=== PATIENT | male | born 1970 | race American Indian/Alaskan Native ===

== ENCOUNTER 2017-01-09 14:52 | Emergency (ER) | payer MEDICAID, OTHER ==
[2017-01-09 14:52] VITALS: BMI 50.9
--- NOTE | 2017-01-09 15:58 | C.PDOC ---
History Of Present Illness 46 year old patient presents to the ED complaining of right foot and ankle pain for the past 2 weeks. Patient has a known history of gout and he notes this complaint is similar to previous episodes of gout. Patient reports he took multiple Colchicine tabs today (dose unknown), but has not taken any medications for diabetes or hypertension. He denies any fever, injuries to the foot or ankle, chest pain, shortness of breath, extremity numbness, rash, discharge. Time Seen by Provider: 01/09/17 15:13 Chief Complaint (Nursing): Lower Extremity Problem/Injury History Per: Patient History/Exam Limitations: no limitations Onset/Duration Of Symptoms: Other (2 weeks) Severity: Moderate Recent travel outside of the [place]: No Past Medical History Reviewed: Historical Data, Nursing Documentation, Vital Signs Vital Signs: Last Vital Signs Temp 98.3 F 01/09/17 17:13 Pulse 102 H 01/09/17 17:13 Resp 18 01/09/17 17:13 BP 161/72 H 01/09/17 17:13 Pulse Ox 96 01/09/17 18:12 - Medical History PMH: Anemia, Depression, HTN, Sleep Apnea - [facility] Procedures ASSISTANCE WITH RESPIRATORY VENTILATION, <24 HRS, CPAP (10/15/15) INSERTION OF ENDOTRACHEAL AIRWAY INTO TRACHEA, VIA OPENING (10/15/15) RESPIRATORY VENTILATION, LESS THAN 24 CONSECUTIVE HOURS (10/15/15) Family History: States: No Known Family Hx - Social History Hx Alcohol Use: No Hx Substance Use: No - Immunization History Hx Tetanus Toxoid Vaccination: No Hx Influenza Vaccination: No Hx Pneumococcal Vaccination: No Review Of Systems Except As Marked, All Systems Reviewed And Found Negative. Constitutional: Negative for: Fever, Chills Cardiovascular: Negative for: Chest Pain, Palpitations Respiratory: Negative for: Cough, Shortness of Breath Gastrointestinal: Negative for: Nausea, Vomiting, Abdominal Pain, Diarrhea Musculoskeletal: Positive for: Foot Pain (right) Neurological: Negative for: Weakness, Numbness Physical Exam - Physical Exam Appears: Well, Non-toxic, Unkempt, Other (in mild discomfort, morbidly obese) Skin: Normal Color, Warm, Dry, Other (see extremity exam) Oral Mucosa: Moist Cardiovascular: Rhythm Regular Respiratory: Normal Breath Sounds, No Rales, No Rhonchi, No Wheezing Gastrointestinal/Abdominal: Normal Exam, Bowel Sounds, Soft, No Tenderness Back: Normal Inspection, No CVA Tenderness Extremity: Normal ROM, No Pedal Edema, No Calf Tenderness, Capillary Refill (< 2 seconds all digits ), No Deformity, Other (right foot: mild diffuse swelling and warmth to touch of the foot; tenderness to palpation at right MCP; (-) erythema) Extremity: Bilateral: Normal ROM Pulses: Left Dorsalis Pedis: Normal, Right Dorsalis Pedis: Normal Neurological/Psych: Oriented x3, Normal Motor, Normal Sensation Gait: With Assistance (walker) ED Course And Treatment O2 Sat by Pulse Oximetry: 96 (room air) Pulse Ox Interpretation: Normal Progress Note: Patient given PO Losartan, Indocin, Metformin in ED. Reevaluation Time: 16:40 Reassessment Condition: Improved (On reassessment, patient is resting comfortably and states his pain has improved. He was given walker to ambulate with, and rxs for indomethacin and colchicine. He was instructed to follow up with PMD/clinic in 1-2 days, and understands he should return to ED if symptoms worsen.) Disposition Counseled Patient/Family Regarding: Studies Performed, Diagnosis, Need For Followup, Rx Given - Disposition Referrals: Christopher Long MD [Medical Doctor] - Disposition: HOME/ ROUTINE Disposition Time: 16:40 Condition: STABLE Additional Instructions: FOLLOW UP WITH YOUR DOCTOR IN 1-2 DAYS USE MEDICATIONS DIRECTED RETURN TO ER IF SYMPTOMS WORSEN Prescriptions: Colchicine 0.6 mg PO DAILY #4 capsule Indomethacin [Indocin] 50 mg PO BID PRN #15 cap PRN Reason: pain Instructions: Gout (ED) Print Language: PERUVIAN - POA Present On Arrival: None - Clinical Impression Clinical Impression: Gout of right foot - PA / [employer]OR / Resident Statement MD/DO has reviewed & agrees with the documentation as recorded. - Scribe Statement The provider has reviewed the documentation as recorded by the Scribe Cici Sheehan Provider Attestation: All medical record entries made by the Gloriaibrachel were at my direction and personally dictated by me. I have reviewed the chart and agree that the record accurately reflects my personal performance of the history, physical exam, medical decision making, and the department course for this patient. I have also personally directed, reviewed, and agree with the discharge instructions and disposition.
[2017-01-09 17:14] VITALS: BP 161/72; PULSE 102; RESP 18; TEMP 98.3; O2SAT 96
== END 2017-01-09 17:50 | disposition home or self-care (01) ==
LOC: C.ER 14:52
DX: M10.9 Gout, unspecified (principal)

== ENCOUNTER 2017-04-13 15:05 | Inpatient (IN) | payer MEDICAID, OTHER ==
[2017-04-13 15:05] VITALS: BMI 50.9
[2017-04-13 15:42] LABS: BARBITURATES, UR NEGATIVE (NEGATIVE)
[2017-04-13 15:43] LABS: BENZODIAZEPINES, UR NEGATIVE (NEGATIVE)
[2017-04-13 15:44] LABS: SQUAMOUS EPITHIAL 5 /hpf (0-5); URINE BILIRUBIN NEGATIVE (NEGATIVE); URINE BLOOD NEGATIVE (NEGATIVE); URINE CLARITY Hazy (Clear); URINE COLOR Yellow (YELLOW); URINE GLUCOSE (UA) NORMAL (Normal); URINE HYALINE CAST 0-2 /lpf (0-2); URINE LEUKOCYTE ESTERASE 1+ Leu/uL (Negative); URINE NITRATE NEGATIVE (NEGATIVE); URINE PROTEIN NEGATIVE (NEGATIVE); URINE UROBILINOGEN NORMAL mg/dL (0.2-1.0)
[2017-04-13 15:46] LABS: OPIATES, UR NEGATIVE (NEGATIVE); PHENCYCLIDINE, UR NEGATIVE (NEGATIVE)
[2017-04-13] MEDS ORDERED: Naloxone 0.4 mg/ml Inj (Adult) IV ONE (15:48)
[2017-04-13] MEDS ORDERED: Naloxone 0.4 mg/ml Inj (Adult) ONE (15:59)
[2017-04-13] MEDS ORDERED: Naloxone 0.4 mg/ml Inj (Adult) SC ONE (16:03)
--- NOTE | 2017-04-13 16:35 | C.PDOC ---
History Of Present Illness 46 y/o male with Hx of substance abuse brought to ED by BLS after being found unconscious at Diagnostic Office. Patient was not given Narcan SANITATION LEAD. No other complaints at this time. Time Seen by Provider: 04/13/17 15:31 Chief Complaint (Nursing): Substance Abuse History Per: EMS History/Exam Limitations: other (Unconscious) Onset/Duration Of Symptoms: Days Current Symptoms Are (Timing): Still Present Past Medical History Reviewed: Historical Data, Nursing Documentation, Vital Signs Vital Signs: Last Vital Signs Temp 97.6 F 04/13/17 17:19 Pulse 96 H 04/13/17 17:19 Resp 20 04/13/17 17:19 BP 116/72 04/13/17 17:19 Pulse Ox 98 04/13/17 17:19 - Medical History PMH: Anemia, Depression, HTN, Sleep Apnea - [facility] Procedures ASSISTANCE WITH RESPIRATORY VENTILATION, <24 HRS, CPAP (10/15/15) INSERTION OF ENDOTRACHEAL AIRWAY INTO TRACHEA, VIA OPENING (10/15/15) RESPIRATORY VENTILATION, LESS THAN 24 CONSECUTIVE HOURS (10/15/15) Family History: States: Unknown Family Hx - Social History Hx Alcohol Use: No (UNKNOWN) Hx Substance Use: No (UNKNOWN) - Immunization History Hx Tetanus Toxoid Vaccination: No Hx Influenza Vaccination: No Hx Pneumococcal Vaccination: No Review Of Systems Review Of Systems: ROS cannot be obtained secondary to pt's inabilty to answer questions. (Patient is unconscious) Physical Exam - Physical Exam Appears: Other (Unconscious, morbidly obese ) Skin: Warm Eye(s): bilateral: Normal Inspection Oral Mucosa: Moist ED Course And Treatment - Laboratory Results Result Diagrams: 04/13/17 16:30 04/13/17 16:30 Lab Interpretation: Normal (tox, etoh, asa/tylenol neg.) ECG: Interpreted By Ia ECG Rhythm: Sinus Rhythm ECG Interpretation: Normal Rate From EC O2 Sat by Pulse Oximetry: 89 (RA) Pulse Ox Interpretation: Abnormal - Radiology CXR: Interpreted by Me CXR Interpretation: Yes: No Acute Disease Reevaluation Time: 20:10 Reassessment Condition: Improved (conversant with staff, but somnolent after 5 hours.) - Physician Consult Information Outcome Of Conversation: 1900: d/w Poison Control and ICU, ok to Tele Obs with CPAP and supportive care. Medical Decision Making Medical Decision Making: recurrent OD on psych meds and benadryl with poor insight. LOW susp of toxic OD as pt inreasingly more arousable and tox/ASA/Tylenol/ETOH neg Recent similar OD with multple day admission for psych coordination of dispo Disposition Doctor Will See Patient In The: Hospital Counseled Patient/Family Regarding: Studies Performed, Diagnosis - Disposition Disposition: HOSPITALIZED Disposition Time: 20:12 Condition: GOOD Forms: [facility] (Icelandic) - Clinical Impression Clinical Impression: Altered mental status, Overdose, Sleep apnea - Scribe Statement The provider has reviewed the documentation as recorded by the Gloriaibrachel Devries All medical record entries made by the Gloriaibrachel were at my direction and personally dictated by me. I have reviewed the chart and agree that the record accurately reflects my personal performance of the history, physical exam, medical decision making, and the department course for this patient. I have also personally directed, reviewed, and agree with the discharge instructions and disposition.
[2017-04-13 16:36] LABS: BASO % 0.7 % (0.0-2.0); EOS # 0.1 K/uL (0.0-0.7); EOS % 0.8 % (0.0-4.0); HEMOGLOBIN 12.9 g/dL (12.0-18.0); LYMPH # 1.8 K/uL (1.0-4.3); LYMPH % 25.3 % (20.0-40.0); MEAN CELL VOLUME 87.6 fL (80.0-94.0); MEAN CORPUSCULAR HEMOGLOBIN 28.7 pg (27.0-31.0); MEAN CORPUSCULAR HGB CONC 32.8 g/dL (33.0-37.0); MEAN PLATELET VOLUME 7.8 fL (7.2-11.7); MONO # 0.8 K/uL (0.0-0.8); MONO % 11.1 % (0.0-10.0); NEUT # 4.4 K/uL (1.8-7.0); NEUT % 62.1 % (50.0-75.0); NRBC % 0.1 % (0.0-2.0); RBC 4.5 Mil/uL (4.40-5.90); RED CELL DISTRIBUTION WIDTH 14.2 % (11.5-14.5)
[2017-04-13 16:45] LABS: ALBUMIN 3.4 g/dL (3.5-5.0)
[2017-04-13 16:46] LABS: SALICYLATE < 1.0 mg/dL 1
[2017-04-13 16:47] LABS: ACETAMINOPHEN < 10.0 ug/mL (10.0-30.0); GFR AFRICAN-AMERICAN > 60; GFR NON-AFRICAN AMERICAN > 60
[2017-04-13 16:48] LABS: ALB/GLOB RATIO 1.1 (1.0-2.1); ALT/SGPT 24 U/L (21-72); AST/SGOT 24 U/L (17-59); BLOOD UREA NITROGEN 18 mg/dL (9-20); CALCIUM 8.2 mg/dl (8.6-10.4)
--- NOTE | 2017-04-13 17:20 | CT ---
PROCEDURE: CT HEAD WITHOUT CONTRAST. HISTORY: AMS COMPARISON: None available. TECHNIQUE: Axial computed tomography images were obtained through the head/brain without intravenous contrast. Radiation dose: Total exam DLP = 1482.79 mGy-cm. This CT exam was performed using one or more of the following dose reduction techniques: Automated exposure control, adjustment of the mA and/or kV according to patient size, and/or use of iterative reconstruction technique. FINDINGS: HEMORRHAGE: No intracranial hemorrhage. BRAIN: No mass effect or edema. Left middle cranial fossa arachnoid cyst versus encephalomalacia. The huynh-white matter differentiation appears otherwise intact. Please note that MRI with diffusion imaging is more sensitive in the detection of acute ischemic event. VENTRICLES: No hydrocephalus. CALVARIUM: Unremarkable. PARANASAL SINUSES: Unremarkable as visualized. No significant inflammatory changes. MASTOID AIR CELLS: Unremarkable as visualized. No inflammatory changes. OTHER FINDINGS: None. IMPRESSION: Left middle cranial fossa arachnoid cyst versus encephalomalacia.
--- NOTE | 2017-04-13 20:58 | CP.PCM.CON ---
History of Present Illness - History of Present Illness History of Present Illness: CCm 46 yo black male with hx Schizophrenia /Substance Abuse /Anemia /Depression /HTN /JACK brought to ED after becoming unresponsive in office. No response to narcan.Pt placed on O2 initially not responding and pinpoint pupils. Pt snoring when seen in ED now arousable and answering some questions. Poor historian. Caims he took some benadryl and Haldol. denied pain / sob /n /v /d /fever. ROS- as noted All- NKDA Social- + tob/ ? etoh / + hx substance abuse Meds- reviewed FH- Unknown PE T-97.6 P96 R-20 BP-116/72 O2 sat 100% Obese black male/ lethargic, responsive Perrl Neck- no jvd lungs- bilat bs Heart-rr aBd- benign eXt- nontender Neuro- moves all ext on command Labs , x-rays, EKG-reviewed A&P Mixed OD JACK Schizophrenia Anemia Depression HTN titrate down on FIO2 / maintain sat >92% f/u ABG hydration maintain optimal lytes CPAP suction prn Admit to Telemetry re-consult prn d/w ED staff Past Patient History - Infectious Disease Hx of Infectious Diseases: None - Past Social History Smoking Status: Unknown If Ever Smoked - CARDIAC Hx Hypertension: Yes - PULMONARY Hx Sleep Apnea: Yes - NEUROLOGICAL Hx Neurological Disorder: No - HEENT Hx HEENT Problems: No - RENAL Hx Chronic Kidney Disease: No - ENDOCRINE/METABOLIC Hx Diabetes Mellitus Type 2: Yes - HEMATOLOGICAL/ONCOLOGICAL Hx Anemia: Yes - INTEGUMENTARY Hx Dermatological Problems: No - MUSCULOSKELETAL/RHEUMATOLOGICAL Hx Musculoskeletal Disorders: No - GASTROINTESTINAL Hx Gastrointestinal Disorders: No - GENITOURINARY/GYNECOLOGICAL Hx Genitourinary Disorders: No - PSYCHIATRIC Hx Depression: Yes Hx Substance Use: No (UNKNOWN) - SURGICAL HISTORY Hx Surgeries: No - ANESTHESIA Hx Anesthesia: No Hx Anesthesia Reactions: No Hx Malignant Hyperthermia: No Meds Allergies/Adverse Reactions: Allergies Allergy/AdvReac Type Severity Reaction Status Date / Time No Known Allergies Allergy Verified 06/13/15 02:16 Results - Vital Signs Recent Vital Signs: Last Vital Signs Temp 97.6 F 04/13/17 17:19 Pulse 96 H 04/13/17 17:19 Resp 20 04/13/17 17:19 BP 116/72 04/13/17 17:19 Pulse Ox 89 L 04/13/17 20:13 - Labs Result Diagrams: 04/13/17 16:30 04/13/17 16:30 Labs: Laboratory Results - last 24 hr 04/13/17 04/13/17 04/13/17 15:26 15:26 16:30 WBC 7.0 RBC 4.50 Hgb 12.9 Hct 39.4 MCV 87.6 D MCH 28.7 MCHC 32.8 L RDW 14.2 Plt Count 235 MPV 7.8 Neut % (Auto) 62.1 Lymph % (Auto) 25.3 [place] % (Auto) 11.1 H Eos % (Auto) 0.8 Baso % (Auto) 0.7 Neut # 4.4 Lymph # 1.8 [place] # 0.8 Eos # 0.1 Baso # 0.0 Sodium Potassium Chloride Carbon Dioxide Anion Gap BUN Creatinine Est GFR ( Amer) Est GFR (Non-Af Amer) Random Glucose Calcium Total Bilirubin AST ALT Alkaline Phosphatase Total Protein Albumin Globulin Albumin/Globulin Ratio Urine Color Yellow Urine Clarity Hazy Urine pH 6.0 Ur Specific [place] 1.018 Urine Protein Negative Urine Glucose (UA) Normal Urine Ketones Negative Urine Blood Negative Urine Nitrate Negative Urine Bilirubin Negative Urine Urobilinogen Normal Ur Leukocyte Esterase 1+ H Urine WBC (Auto) 4 Urine RBC (Auto) < 1 Ur Squamous Epith Cells 5 Hyaline Casts 0-2 Salicylates Urine Opiates Screen Negative Urine Methadone Screen Negative Acetaminophen Ur Barbiturates Screen Negative Ur Phencyclidine Scrn Negative Ur Amphetamines Screen Negative U Benzodiazepines Scrn Negative U Oth Cocaine Metabols Negative U Cannabinoids Screen Negative Alcohol, Quantitative 04/13/17 04/13/17 16:30 16:30 WBC RBC Hgb Hct MCV MCH MCHC RDW Plt Count MPV Neut % (Auto) Lymph % (Auto) [place] % (Auto) Eos % (Auto) Baso % (Auto) Neut # Lymph # [place] # Eos # Baso # Sodium 141 Potassium 3.9 Chloride 94 L Carbon Dioxide 33 H Anion Gap 18 BUN 18 Creatinine 1.0 Est GFR ( Amer) > 60 Est GFR (Non-Af Amer) > 60 Random Glucose 129 H Calcium 8.2 L Total Bilirubin 0.4 AST 24 ALT 24 Alkaline Phosphatase 57 Total Protein 6.7 Albumin 3.4 L Globulin 3.2 Albumin/Globulin Ratio 1.1 Urine Color Urine Clarity Urine pH Ur Specific [place] Urine Protein Urine Glucose (UA) Urine Ketones Urine Blood Urine Nitrate Urine Bilirubin Urine Urobilinogen Ur Leukocyte Esterase Urine WBC (Auto) Urine RBC (Auto) Ur Squamous Epith Cells Hyaline Casts Salicylates < 1.0 Urine Opiates Screen Urine Methadone Screen Acetaminophen < 10.0 L Ur Barbiturates Screen Ur Phencyclidine Scrn Ur Amphetamines Screen U Benzodiazepines Scrn U Oth Cocaine Metabols U Cannabinoids Screen Alcohol, Quantitative < 10 Assessment & Plan (1) Overdose Status: Acute (2) Altered mental status Status: Acute (3) Sleep apnea Status: Acute (4) Morbid obesity Status: Chronic (5) Schizophrenia Status: Chronic
[2017-04-14] MEDS: Dextrose 5%/0.45% NS 1,000 ML IV SCH (00:02)
[2017-04-14] MEDS: (Novolog) Insulin Aspart, Recombinant 100 u/ml 10 ml vial SC SCH ×4 (08:00→21:48)
--- NOTE | 2017-04-14 08:53 | RAD ---
HISTORY: admission sleep apnea COMPARISON: 03/31/2013 FINDINGS: LUNGS: Mild venous congestion. Right hilar prominence. PLEURA: No significant pleural effusion identified, no pneumothorax apparent. CARDIOVASCULAR: Normal. OSSEOUS STRUCTURES: No significant abnormalities. VISUALIZED UPPER ABDOMEN: Normal. OTHER FINDINGS: None. IMPRESSION: Mild venous congestion. Right hilar prominence.
[2017-04-14] MEDS: Pantoprazole 40 mg EC Tab PO SCH (10:28)
[2017-04-14] MEDS: Enoxaparin 40 mg Syringe SC SCH (10:28)
--- NOTE | 2017-04-14 10:50 | CP.PCM.PN ---
<Radha Sullivan - Last Filed: 04/14/17 17:56> Subjective - Date & Time of Evaluation Date of Evaluation: 04/14/17 Time of Evaluation: 10:50 - Subjective Subjective: Hospitalist resident progress note for Dr. Sheehan Patient seen and examined at bedside. No acute events overnight. Patient was sleeping at the time of exam and was having difficulty staying awake. Unable to obtain detailed history and ROS due to drowsiness. Objective - Vital Signs/Intake and Output Vital Signs (last 24 hours): Temp Pulse Resp BP Pulse Ox 98.4 F 74 20 148/81 96 04/14/17 08:58 04/14/17 08:58 04/14/17 08:58 04/14/17 08:58 04/14/17 08:58 Intake and Output: 04/14/17 04/14/17 06:59 18:59 Intake Total 525 Output Total 250 Balance 275 - Medications Medications: Current Medications Aspirin (Aspirin Chewable) 81 mg PO DAILY [facility] Last Admin: 04/14/17 10:28 Dose: 81 mg Enoxaparin Sodium (Lovenox) 40 mg SC DAILY [facility] Last Admin: 04/14/17 10:28 Dose: 40 mg Dextrose/Sodium Chloride (Dextrose 5%/0.45% Ns 1000 Ml) 1,000 mls @ 75 mls/hr IV .[id number] [facility] Last Admin: 04/14/17 00:02 Dose: 75 mls/hr Insulin Aspart (Novolog) 0 unit SC ACHS [facility] PRN Reason: Protocol Pantoprazole Sodium (Protonix Ec Tab) 40 mg PO DAILY [facility] Last Admin: 04/14/17 10:28 Dose: 40 mg - Constitutional Appears: Non-toxic, No Acute Distress, Other (obese) - Head Exam Head Exam: ATRAUMATIC, NORMAL INSPECTION, NORMOCEPHALIC - Eye Exam Eye Exam: EOMI, Normal appearance, PERRL Pupil Exam: NORMAL ACCOMODATION, PERRL - ENT Exam ENT Exam: Mucous Membranes Moist, Normal Exam - Respiratory Exam Respiratory Exam: Clear to Ausculation Bilateral Additional comments: CPAP mask in place - Cardiovascular Exam Cardiovascular Exam: REGULAR RHYTHM, +S1, +S2. absent: Murmur - GI/Abdominal Exam GI & Abdominal Exam: Soft, Normal Bowel Sounds Additional comments: obese - Extremities Exam Extremities Exam: Normal Capillary Refill, Normal Inspection. absent: Joint Swelling, Pedal Edema - Neurological Exam Neurological Exam: Alert, Awake - Psychiatric Exam Psychiatric exam: Normal Affect, Normal Mood - Skin Skin Exam: Dry, Intact, Normal Color, Warm Assessment and Plan - Assessment and Plan (Free Text) Assessment: Mixed overdose -Urine drug screen negative -Patient remains lethargic -Vitals are stable, continue to monitor -Received a dose of Narcan in the ED -Continue D5 1/2 NS JACK -Follow Pulmonary recommendations -Continue CPAP, suction PRN DM -ISS -Accucheck ACHS Schizophrenia, psychosis -Psychiatry consult, Dr. Gardiner help appreciated -1 on 1 observation -Consider Abilify once mentation improved Prophylactic measures -Lovenox -Protonix <Erasto Sheehan S - Last Filed: 04/14/17 19:37> Objective - Vital Signs/Intake and Output Vital Signs (last 24 hours): Temp Pulse Resp BP Pulse Ox 98.2 F 84 22 105/67 100 04/14/17 15:16 04/14/17 16:30 04/14/17 15:16 04/14/17 15:16 04/14/17 15:16 - Medications Medications: Current Medications Aspirin (Aspirin Chewable) 81 mg PO DAILY [facility] Last Admin: 04/14/17 10:28 Dose: 81 mg Enoxaparin Sodium (Lovenox) 40 mg SC DAILY [facility] Last Admin: 04/14/17 10:28 Dose: 40 mg Dextrose/Sodium Chloride (Dextrose 5%/0.45% Ns 1000 Ml) 1,000 mls @ 75 mls/hr IV .[id number] [facility] Last Admin: 04/14/17 00:02 Dose: 75 mls/hr Insulin Aspart (Novolog) 0 unit SC [facility] PRN Reason: Protocol Last Admin: 04/14/17 18:19 Dose: Not Given Pantoprazole Sodium (Protonix Ec Tab) 40 mg PO DAILY [facility] Last Admin: 04/14/17 10:28 Dose: 40 mg Attending/Attestation - Attestation I have personally seen and examined this patient.: Yes I have fully participated in the care of the patient.: Yes I have reviewed all pertinent clinical information, including history, physical exam and plan: Yes Notes (Text): 04/14/17 19:37 Case seen and discussed with the staff for patient is poor historian a psychiatrist Dr. carvajal notes seen
--- NOTE | 2017-04-14 16:42 | CP.PCM.CON ---
Past Patient History - Infectious Disease Hx of Infectious Diseases: None - Past Social History Smoking Status: Unknown If Ever Smoked - CARDIAC Hx Hypertension: Yes - PULMONARY Hx Sleep Apnea: Yes - NEUROLOGICAL Hx Neurological Disorder: No - HEENT Hx HEENT Problems: No - RENAL Hx Chronic Kidney Disease: No - ENDOCRINE/METABOLIC Hx Diabetes Mellitus Type 2: Yes - HEMATOLOGICAL/ONCOLOGICAL Hx Anemia: Yes - INTEGUMENTARY Hx Dermatological Problems: No - MUSCULOSKELETAL/RHEUMATOLOGICAL Hx Falls: Yes - GASTROINTESTINAL Hx Gastrointestinal Disorders: No - GENITOURINARY/GYNECOLOGICAL Hx Genitourinary Disorders: No - PSYCHIATRIC Hx Substance Use: No (UNKNOWN) - SURGICAL HISTORY Hx Surgeries: No - ANESTHESIA Hx Anesthesia: No Hx Anesthesia Reactions: No Hx Malignant Hyperthermia: No Meds Allergies/Adverse Reactions: Allergies Allergy/AdvReac Type Severity Reaction Status Date / Time No Known Allergies Allergy Verified 06/13/15 02:16 - Medications Medications: Current Medications Aspirin (Aspirin Chewable) 81 mg PO DAILY [facility] Last Admin: 04/14/17 10:28 Dose: 81 mg Enoxaparin Sodium (Lovenox) 40 mg SC DAILY [facility] Last Admin: 04/14/17 10:28 Dose: 40 mg Dextrose/Sodium Chloride (Dextrose 5%/0.45% Ns 1000 Ml) 1,000 mls @ 75 mls/hr IV .[id number] [facility] Last Admin: 04/14/17 00:02 Dose: 75 mls/hr Insulin Aspart (Novolog) 0 unit SC [facility] PRN Reason: Protocol Last Admin: 04/14/17 11:52 Dose: Not Given Pantoprazole Sodium (Protonix Ec Tab) 40 mg PO DAILY [facility] Last Admin: 04/14/17 10:28 Dose: 40 mg Results - Vital Signs Recent Vital Signs: Last Vital Signs Temp 98.4 F 04/14/17 08:58 Pulse 74 04/14/17 08:58 Resp 20 04/14/17 08:58 BP 148/81 04/14/17 08:58 Pulse Ox 96 04/14/17 08:58 - Labs Result Diagrams: 04/13/17 16:30 04/13/17 16:30 Labs: Laboratory Results - last 24 hr 04/13/17 04/14/17 04/14/17 22:15 06:45 11:28 POC Glucose (mg/dL) 92 117 H 122 H 04/14/17 16:21 POC Glucose (mg/dL) 108
--- NOTE | 2017-04-14 17:03 | PCM.PSYCH ---
Initial Psychiatric Evaluation - Initial Psychiatric Evaluation History of Present Illness and Precipitating Events: Mr Menezes is a 46 yr old male who was brought to ED by BLS after being found unconscious at the Diagnostic Office. Obtaining a good history was not possible because the patient was sleeping with cpap mask and not responding to our questions. Very poor historian at this time. He would open his eyes briefly and provide one word answers before falling asleep again. He says his home medications include benedryl, depakote, cogentin, haldol. He denied hallucinations. Some of his history was obtained from his chart from previous admissions. On a previous admission the patient was found to have psychotic behavior and anti-psychotic meds were given. He was transferred to [facility] [place] inpatient admission to their psych unit. Psychiatric Hx: Schizophrenia, Depression Other Medical Hx: JACK, Anemia, HTN, HLD, NIDDM Social Hx: single; not employed Current Medications: Active Medications Generic Name Dose Route Start Last Admin Trade Name Freq PRN Reason Stop Dose Admin Aspirin 81 mg 04/14/17 10:04/14/17 10:28 Aspirin Chewable PO 81 mg DAILY [facility] Administration Enoxaparin Sodium 40 mg 04/14/17 10:00 04/14/17 10:28 Lovenox SC 40 mg DAILY [facility] Administration Dextrose/Sodium Chloride 1,000 mls @ 75 mls/hr 04/13/17 22:45 04/14/17 00:02 Dextrose 5%/0.45% Ns 1000 Ml IV 75 mls/hr .[id number] [facility] Administration Insulin Aspart 0 unit 04/14/17 07:30 04/14/17 11:52 Novolog SC Not Given ACHS [facility] Protocol Pantoprazole Sodium 40 mg 04/14/17 10:00 04/14/17 10:28 Protonix Ec Tab PO 40 mg DAILY [facility] Administration Past Psychiatric History - Past Psychiatric History Previous Treatment History: Inpatient Prior Psychiatric Treatment: anti-psychotic meds were given on previous admission Pertinent Medical Hx (Current Medical&Sleep Prob, Allergies): Allergies Allergy/AdvReac Type Severity Reaction Status Date / Time No Known Allergies Allergy Verified 06/13/15 02:16 Colchicine [Colcrys] 0.6 mg PO TID #14 tab 06/13/15 Adult Low Dose Aspirin EC 81 PO DAILY 10/17/15 Cogentin 2 mg PO BID 10/17/15 Metformin HCl 1,000 mg PO BID 10/17/15 Prilosec 20 mg PO 10/17/15 Valsartan [Diovan] 320 mg PO DAILY 10/17/15 Zocor 40 mg PO DAILY 10/17/15 Haloperidol [Haldol] 10 mg PO BID #0 10/20/15 cloZAPine [Clozaril] 25 mg PO BID #0 tab 10/20/15 Colchicine 0.6 mg PO DAILY #4 capsule 01/09/17 Depakote ER 01/09/17 Indomethacin [Indocin] 50 mg PO BID PRN #15 cap 01/09/17 Mental Status Examination - Affect Affect: Flat - Motor Activity Motor Activity: Psychomotor Retardation - Reliability in Providing Information Reliability in Providing Information: Poor, due to cognitve impairment - Speech Speech: Organized DSM 5 DX - DSM 5 DSM 5 Diagnosis: Psychosis - unspecified previous diagnosis of schizophrenia, psychosis - Recommended/Plan of Treatment Treatment Recommendations and Plan of Treatment: Narcan 2mg sc given in ED Monitor for arousability 1:1 obs considering abilify 5mg qpm if not sedated
--- NOTE | 2017-04-14 17:14 | CP.PCM.HP ---
Past Patient History - Infectious Disease Hx of Infectious Diseases: None - Past Social History Smoking Status: Unknown If Ever Smoked - CARDIAC Hx Hypertension: Yes - PULMONARY Hx Sleep Apnea: Yes - NEUROLOGICAL Hx Neurological Disorder: No - HEENT Hx HEENT Problems: No - RENAL Hx Chronic Kidney Disease: No - ENDOCRINE/METABOLIC Hx Diabetes Mellitus Type 2: Yes - HEMATOLOGICAL/ONCOLOGICAL Hx Anemia: Yes - INTEGUMENTARY Hx Dermatological Problems: No - MUSCULOSKELETAL/RHEUMATOLOGICAL Hx Falls: Yes - GASTROINTESTINAL Hx Gastrointestinal Disorders: No - GENITOURINARY/GYNECOLOGICAL Hx Genitourinary Disorders: No - PSYCHIATRIC Hx Substance Use: No (UNKNOWN) - SURGICAL HISTORY Hx Surgeries: No - ANESTHESIA Hx Anesthesia: No Hx Anesthesia Reactions: No Hx Malignant Hyperthermia: No Meds Allergies/Adverse Reactions: Allergies Allergy/AdvReac Type Severity Reaction Status Date / Time No Known Allergies Allergy Verified 06/13/15 02:16 Physical Exam - Constitutional Appears: Well - Head Exam Head Exam: ATRAUMATIC, NORMAL INSPECTION, NORMOCEPHALIC - Eye Exam Eye Exam: EOMI, Normal appearance, PERRL Pupil Exam: NORMAL ACCOMODATION, PERRL - ENT Exam ENT Exam: Mucous Membranes Moist, Normal Exam - Neck Exam Neck exam: Positive for: Normal Inspection - Respiratory Exam Respiratory Exam: Decreased Breath Sounds - Cardiovascular Exam Cardiovascular Exam: REGULAR RHYTHM, +S1, +S2 - GI/Abdominal Exam GI & Abdominal Exam: Diminished Bowel Sounds, Soft - Rectal Exam Rectal Exam: Deferred Results - Vital Signs Recent Vital Signs: Last Vital Signs Temp 98.2 F 04/14/17 15:16 Pulse 84 04/14/17 16:30 Resp 22 04/14/17 15:16 BP 105/67 04/14/17 15:16 Pulse Ox 100 04/14/17 15:16 - Labs Result Diagrams: 04/13/17 16:30 04/13/17 16:30 Labs: Laboratory Results - last 24 hr 04/13/17 04/14/17 04/14/17 22:15 06:45 11:28 POC Glucose (mg/dL) 92 117 H 122 H 04/14/17 16:21 POC Glucose (mg/dL) 108 Assessment & Plan - Assessment and Plan (Free Text) Plan: Continue same Protonix Lovenox patient is a poor historian unable to give a detailed history psych consult call medication seen negative for drug screen follow-up with the psych doctor 1-1 watch
--- NOTE | 2017-04-14 19:14 | CARD ---
APPROVED REPORT EKG Measurement Heart [id number] <Conclusion> Normal sinus rhythm Minimal voltage criteria for LVH, may be normal variant Nonspecific T wave abnormality Abnormal ECG
[2017-04-15] MEDS: Dextrose 5%/0.45% NS 1,000 ML IV SCH (01:25)
[2017-04-15 06:20] LABS: BLOOD UREA NITROGEN 17 mg/dL (9-20); CALCIUM 8.1 mg/dl (8.6-10.4); GFR AFRICAN-AMERICAN > 60; GFR NON-AFRICAN AMERICAN > 60
[2017-04-15 06:21] LABS: BASO % 0.6 % (0.0-2.0); EOS # 0.2 K/uL (0.0-0.7); EOS % 2.6 % (0.0-4.0); HEMOGLOBIN 12.4 g/dL (12.0-18.0); LYMPH # 2.2 K/uL (1.0-4.3); LYMPH % 28.4 % (20.0-40.0); MEAN CORPUSCULAR HEMOGLOBIN 28.5 pg (27.0-31.0); MEAN CORPUSCULAR HGB CONC 32.4 g/dL (33.0-37.0); MONO # 0.8 K/uL (0.0-0.8); MONO % 10.1 % (0.0-10.0); NEUT # 4.6 K/uL (1.8-7.0); NEUT % 58.3 % (50.0-75.0); NRBC % 0.1 % (0.0-2.0); RBC 4.33 Mil/uL (4.40-5.90); RED CELL DISTRIBUTION WIDTH 14.3 % (11.5-14.5); WHITE BLOOD COUNT 7.9 K/uL (4.8-10.8)
[2017-04-15] MEDS: (Novolog) Insulin Aspart, Recombinant 100 u/ml 10 ml vial SC SCH ×4 (08:25→21:05)
[2017-04-15] MEDS: Enoxaparin 40 mg Syringe SC SCH (09:28)
[2017-04-15] MEDS: Pantoprazole 40 mg EC Tab PO SCH (09:28)
--- NOTE | 2017-04-15 11:34 | CP.PCM.PN ---
Subjective - Date & Time of Evaluation Date of Evaluation: 04/15/17 Time of Evaluation: 13:40 - Subjective Subjective: clinically same Objective - Vital Signs/Intake and Output Vital Signs (last 24 hours): Temp Pulse Resp BP Pulse Ox 98.9 F 93 H 18 143/96 H 97 04/15/17 07:20 04/15/17 08:00 04/15/17 07:20 04/15/17 07:20 04/15/17 07:20 Intake and Output: 04/15/17 04/15/17 06:59 18:59 Intake Total 1620 Output Total 600 Balance 1020 - Medications Medications: Current Medications Aripiprazole (Abilify) 10 mg PO DAILY [facility] Aspirin (Aspirin Chewable) 81 mg PO DAILY [facility] Last Admin: 04/15/17 09:28 Dose: 81 mg Colchicine (Colocrys) 0.6 mg PO BID [facility] Last Admin: 04/15/17 10:51 Dose: 0.6 mg Enoxaparin Sodium (Lovenox) 40 mg SC DAILY [facility] Last Admin: 04/15/17 09:28 Dose: 40 mg Indomethacin (Indocin) 50 mg PO BID PRN PRN Reason: Pain, moderate (4-7) Last Admin: 04/15/17 10:52 Dose: 50 mg Insulin Aspart (Novolog) 0 unit SC [facility] PRN Reason: Protocol Last Admin: 04/15/17 08:25 Dose: Not Given Pantoprazole Sodium (Protonix Ec Tab) 40 mg PO DAILY [facility] Last Admin: 04/15/17 09:28 Dose: 40 mg - Labs Labs: 04/15/17 05:53 04/15/17 05:53 - Constitutional Appears: Well - Head Exam Head Exam: ATRAUMATIC, NORMAL INSPECTION, NORMOCEPHALIC - Eye Exam Eye Exam: EOMI, Normal appearance, PERRL Pupil Exam: NORMAL ACCOMODATION, PERRL - ENT Exam ENT Exam: Mucous Membranes Moist, Normal Exam - Neck Exam Neck Exam: Full ROM, Normal Inspection. absent: Lymphadenopathy - Respiratory Exam Respiratory Exam: Decreased Breath Sounds - Cardiovascular Exam Cardiovascular Exam: REGULAR RHYTHM, +S1, +S2 - GI/Abdominal Exam GI & Abdominal Exam: Soft, Diminished Bowel Sounds - Rectal Exam Rectal Exam: Deferred
--- NOTE | 2017-04-15 12:58 | PCM.PYCHPN ---
Psychiatric Progress Note - Psychiatric Progress Note Patient seen today, length of contact: 25 Patient Chief Complaint: chronic schizophrenia, currently no symptoms was admitted after being found unconscious due to unknown cause Problems Identified/Issues Discussed: The patient was seen/interviewed and the chart was reviewed. The patient was awake today and able to converse and answer our questions. He was AAOx4. He states his extreme sedative state as seen yesterday was because " I think I took too many benadryl". He stated he felt fine today. He denied auditory or visual hallucinations. He stated the last time he heard voices was a long time ago. He denied depressive symptoms. He denied abusing drugs. He denied suicidal ideations. He is enrolled in a [facility]CT program ([phone]) which administers his medications, he said there have been no changes to his medications recently. We retrieved a list of his medications from PACT which are listed below. We spoke with the patient's brother Abhishek ([phone]) who stated he didn't notice anything abnormal in the patient's behavior recently and said the patient does not use illicit drugs or alcohol. Per brother, the patient lives alone at home and is independent. Medications per PACT office: Cogentin 2mg po daily, haldol 10mg po daily, clozapine 450mg po daily, depakote er 1250mg po daily, lisinopril 30mg po daily , bi-pap machine at home Medical Problems: chronic Schizophrenia DSM 5 Symptoms Update: chronic schizophrenia Medication Change: Yes (added clozapine 100mg po bid; added aripiprazole 10mg po daily;) Medical Record Reviewed: Yes Mental Status Examination - Cognitive Function Orientation: Person, Place, Situation, Time Memory: Intact Attention: WNL Concentration: WNL Association: WNL Fund of Knowledge: WNL - Mood Mood: Neutral - Affect Affect: Broad - Speech Speech: Appropriate - Formal Thought Process Formal Thought Process: No Impairment - Suicidal Ideation Suicidal Ideation: No - Homicidal Ideation Homicidal Ideation: No Goal/Treatment Plan - Goal/Treatment Plan Need for Continued Stay: Discharge may exacerbated symptoms Progress Toward Problem(s) and Goals/Treatment Plan: transfer to psych unit for observation con't home med depakote 500mg po bid. this is a decrease from his home dose of depakote er 1250mg po daily con't home med benztropine 1mg po bid aripiprazole 10mg po daily discontinue 1:1 obs
--- NOTE | 2017-04-15 13:30 | CP.PCM.PN ---
Subjective - Date & Time of Evaluation Date of Evaluation: 04/15/17 Time of Evaluation: 09:10 - Subjective Subjective: PGY-[address] Sheehan Patient seen and examined at bedside. No acute events overnight. Patient is not complaining of lethargy or shortness of breath, but he is still unable to provide a clear history of what happened prior to coming to the ED. He also complains of his gout is acting up, which causing him pain. Patient denies having headache, fever, chills, coughs, chest pain, palpitations, abdominal pain , nausea, vomiting or urinary symptoms. Objective - Vital Signs/Intake and Output Vital Signs (last 24 hours): Temp Pulse Resp BP Pulse Ox 98.9 F 93 H 18 143/96 H 97 04/15/17 07:20 04/15/17 08:00 04/15/17 07:20 04/15/17 07:20 04/15/17 07:20 Intake and Output: 04/15/17 04/15/17 06:59 18:59 Intake Total 1620 Output Total 600 Balance 1020 - Medications Medications: Current Medications Aripiprazole (Abilify) 10 mg PO DAILY [facility] Last Admin: 04/15/17 11:47 Dose: 10 mg Aspirin (Aspirin Chewable) 81 mg PO DAILY [facility] Last Admin: 04/15/17 09:28 Dose: 81 mg Benztropine Mesylate (Cogentin) 1 mg PO BID [facility] Clozapine (Clozaril) 100 mg PO BID [facility] Colchicine (Colocrys) 0.6 mg PO BID [facility] Last Admin: 04/15/17 10:51 Dose: 0.6 mg Divalproex Sodium (Depakote Dr) 500 mg PO BID [facility] Enoxaparin Sodium (Lovenox) 40 mg SC DAILY [facility] Last Admin: 04/15/17 09:28 Dose: 40 mg Indomethacin (Indocin) 50 mg PO BID PRN PRN Reason: Pain, moderate (4-7) Last Admin: 04/15/17 10:52 Dose: 50 mg Insulin Aspart (Novolog) 0 unit SC [facility] PRN Reason: Protocol Last Admin: 04/15/17 12:26 Dose: Not Given Pantoprazole Sodium (Protonix Ec Tab) 40 mg PO DAILY [facility] Last Admin: 04/15/17 09:28 Dose: 40 mg - Labs Labs: 04/15/17 05:53 04/15/17 05:53 - Constitutional Appears: Well, Non-toxic, No Acute Distress - Head Exam Head Exam: ATRAUMATIC, NORMAL INSPECTION, NORMOCEPHALIC - Eye Exam Eye Exam: EOMI, Normal appearance - ENT Exam ENT Exam: Mucous Membranes Moist, Normal Exam - Respiratory Exam Respiratory Exam: Clear to Ausculation Bilateral, NORMAL BREATHING PATTERN. absent: Wheezes, Respiratory Distress - Cardiovascular Exam Cardiovascular Exam: REGULAR RHYTHM, +S1, +S2. absent: Murmur - GI/Abdominal Exam GI & Abdominal Exam: Soft, Normal Bowel Sounds. absent: Tenderness - Extremities Exam Extremities Exam: Full ROM, Normal Capillary Refill, Normal Inspection. absent : Joint Swelling, Pedal Edema - Neurological Exam Neurological Exam: Alert, Awake, Oriented x3 - Psychiatric Exam Psychiatric exam: Normal Affect, Normal Mood - Skin Skin Exam: Normal Color, Warm Assessment and Plan - Assessment and Plan (Free Text) Assessment: Mixed overdose -Patient's lethargy and drowsiness resolved -Urine drug screen negative -Vitals are stable -Received a dose of Narcan in the ED Schizophrenia, psychosis -Follow psychiatry recommendations -continue with home depokate and benztropine -Start Ability -Discontinued 1 on 1 observation -Patient will be admitted to psychiatric unit for further observation under Dr. Bliss Gout -Start Colchicine and indomethacin JACK -Follow Pulmonary recommendations -Continue CPAP, suction PRN DM -ISS -Accucheck ACHS Prophylactic measures -Lovenox -Protonix Will discuss with attending Dr. Sheehan
[2017-04-15 15:50] VITALS: O2SAT 98
--- NOTE | 2017-04-15 16:52 | CP.PCM.PN ---
Subjective - Date & Time of Evaluation Date of Evaluation: 04/15/17 Objective - Vital Signs/Intake and Output Vital Signs (last 24 hours): Temp Pulse Resp BP Pulse Ox 98.1 F 88 20 116/78 98 04/15/17 15:08 04/15/17 15:08 04/15/17 15:08 04/15/17 15:08 04/15/17 15:08 Intake and Output: 04/15/17 04/15/17 06:59 18:59 Output Total 600 Balance -600 - Medications Medications: Current Medications Aripiprazole (Abilify) 10 mg PO DAILY [facility] Last Admin: 04/15/17 11:47 Dose: 10 mg Aspirin (Aspirin Chewable) 81 mg PO DAILY [facility] Last Admin: 04/15/17 09:28 Dose: 81 mg Benztropine Mesylate (Cogentin) 1 mg PO BID [facility] Clozapine (Clozaril) 100 mg PO BID [facility] Colchicine (Colocrys) 0.6 mg PO BID [facility] Last Admin: 04/15/17 10:51 Dose: 0.6 mg Divalproex Sodium (Depakote Dr) 500 mg PO BID [facility] Enoxaparin Sodium (Lovenox) 40 mg SC DAILY [facility] Last Admin: 04/15/17 09:28 Dose: 40 mg Indomethacin (Indocin) 50 mg PO BID PRN PRN Reason: Pain, moderate (4-7) Last Admin: 04/15/17 10:52 Dose: 50 mg Insulin Aspart (Novolog) 0 unit SC ACHS [facility] PRN Reason: Protocol Last Admin: 04/15/17 12:26 Dose: Not Given Lisinopril (Zestril) 20 mg PO DAILY [facility] Pantoprazole Sodium (Protonix Ec Tab) 40 mg PO DAILY [facility] Last Admin: 04/15/17 09:28 Dose: 40 mg
[2017-04-15] MEDS: Divalproex 500 mg DR Tab PO SCH (17:17)
--- NOTE | 2017-04-15 19:06 | PCM.BM ---
<WinnieRamandeep izaguirre - Last Filed: 04/15/17 19:03> Treatment Plan Problems - Problems identified on initial assessmt Auditory Hallucinations Date Initiated: 04/15/17 Time Initiated: 19:05 Assessment reference: NA Status: Active (Transferred from [address] [place] [address]) Treatment assets and liabiliti Patient Assests: cooperative, negotiates basic needs Patient Liabilities: live alone, poor support system - Milieu Protocol Maintain good personal hygiene: daily Encourage regular showers, daily Remind patient to perform daily oral care Conduct patient checks and document Observation sheet: Q15 minutes Maintain personal safety: every other day Monitor environment for contraband/ sharps Medication safety: Monitor for expected outcome, potential side effects: every other day, Assess barriers to learning: every other day, Assess readiness for medication education: every other day Milieu Narrative: transfer to psych unit for observation con't home med depakote 500mg po bid. this is a decrease from his home dose of depakote er 1250mg po daily con't home med benztropine 1mg po bid aripiprazole 10mg po daily discontinue 1:1 obs Discharge/Continuing Care - Treatment Team Participation Patient/Family/SO Statement: transfer to psych unit for observation con't home med depakote 500mg po bid. this is a decrease from his home dose of depakote er 1250mg po daily con't home med benztropine 1mg po bid aripiprazole 10mg po daily discontinue 1:1 obs <Jay Bliss - Last Filed: 04/15/17 20:06> - Diagnosis (1) Schizophrenia Status: Chronic Interventions: 04/15/17 20:06 * Assess/adjust medications daily and /or as needed * Discuss risks, benefits, sided effects and alternatives of medications * See patient on an individual basis 7x/week to assess level of delusional thoughts/ideation * <Jaylin Pollard - Last Filed: 04/16/17 10:20> Discharge/Continuing Care - Education Needs Education Needs: Patient Medication, Patient Coping Skills - Discharge Discharge Criteria: Tolerates medication w/o severe side effects, Reduction of target symptoms Discharge to:: Home
[2017-04-16] MEDS: (Novolog) Insulin Aspart, Recombinant 100 u/ml 10 ml vial SC SCH ×4 (08:07→21:08)
[2017-04-16] MEDS: Pantoprazole 40 mg EC Tab PO SCH (09:33)
[2017-04-16] MEDS: Divalproex 500 mg DR Tab PO SCH ×2 (09:33→17:47)
[2017-04-16] MEDS: Enoxaparin 40 mg Syringe SC SCH (09:35)
--- NOTE | 2017-04-16 11:09 | PCM.PYCHPN ---
Psychiatric Progress Note - Psychiatric Progress Note Patient seen today, length of contact: 19 min Patient Chief Complaint: "I'm doing better" Problems Identified/Issues Discussed: The pt is seen, chart reviewed, case discussed with staff. The pt is compliant with medications and reports no side-effects. Symptoms are improving but needs more time to stabilize. After care discussed, support and psychoeducation given. Ways to avoid episodes like this discussed His CLZ is increased daily to his original dose Medication Change: Yes (increase clozapine) Medical Record Reviewed: Yes Mental Status Examination - Cognitive Function Orientation: Person, Place, Situation, Time Memory: Intact Attention: WNL Concentration: WNL Association: WN Fund of Knowledge: WNL - Mood Mood: Neutral - Affect Affect: Broad - Speech Speech: Appropriate - Formal Thought Process Formal Thought Process: No Impairment - Suicidal Ideation Suicidal Ideation: No - Homicidal Ideation Homicidal Ideation: No Goal/Treatment Plan - Goal/Treatment Plan Need for Continued Stay: Discharge may exacerbated symptoms, Severe functional impairment Progress Toward Problem(s) and Goals/Treatment Plan: Continue meds Adjust doses Support and psychoed Refer back to PACT Estimated Date of D/C: 04/17/17
--- NOTE | 2017-04-16 19:04 | CP.PCM.PN ---
Subjective - Date & Time of Evaluation Date of Evaluation: 04/16/17 Time of Evaluation: 19:04 Objective - Vital Signs/Intake and Output Vital Signs (last 24 hours): Temp Pulse Resp BP Pulse Ox 97.6 F 78 20 129/80 98 04/16/17 08:43 04/16/17 16:11 04/16/17 08:43 04/16/17 16:11 04/15/17 15:08 - Medications Medications: Current Medications Aripiprazole (Abilify) 10 mg PO DAILY [facility] Last Admin: 04/16/17 09:33 Dose: 10 mg Aspirin (Aspirin Chewable) 81 mg PO DAILY [facility] Last Admin: 04/16/17 09:47 Dose: 81 mg Benztropine Mesylate (Cogentin) 1 mg PO BID [facility] Last Admin: 04/16/17 17:46 Dose: 1 mg Clozapine (Clozaril) 100 mg PO BID [facility] Last Admin: 04/16/17 17:46 Dose: 100 mg Clozapine (Clozaril) 25 mg PO BID [facility] Last Admin: 04/16/17 17:46 Dose: 25 mg Colchicine (Colocrys) 0.6 mg PO BID [facility] Last Admin: 04/16/17 17:46 Dose: 0.6 mg Divalproex Sodium (Depakote Dr) 500 mg PO BID [facility] Last Admin: 04/16/17 17:47 Dose: 500 mg Enoxaparin Sodium (Lovenox) 40 mg SC DAILY [facility] Last Admin: 04/16/17 09:35 Dose: Not Given Indomethacin (Indocin) 50 mg PO BID PRN PRN Reason: Pain, moderate (4-7) Last Admin: 04/16/17 09:48 Dose: 50 mg Insulin Aspart (Novolog) 0 unit SC [facility] PRN Reason: Protocol Last Admin: 04/16/17 16:42 Dose: Not Given Lisinopril (Zestril) 20 mg PO DAILY [facility] Last Admin: 04/16/17 09:47 Dose: 20 mg Pantoprazole Sodium (Protonix Ec Tab) 40 mg PO DAILY [facility] Last Admin: 04/16/17 09:33 Dose: 40 mg Tobramycin Sulfate (Tobrex 0.3% Ophth Soln) 2 drop OS Q6 [facility]
[2017-04-16] MEDS ORDERED: Acetylcysteine 20% Inhal Soln (4ml) INH SCH (19:30)
[2017-04-16] MEDS: Tobramycin 0.3% OPHT SOLN OS SCH (21:34)
[2017-04-17] MEDS ORDERED: Acetylcysteine 20% Inhal Soln (4ml) INH SCH (02:00)
[2017-04-17] MEDS: Tobramycin 0.3% OPHT SOLN OS SCH (07:00)
[2017-04-17] MEDS: (Novolog) Insulin Aspart, Recombinant 100 u/ml 10 ml vial SC SCH (08:20)
[2017-04-17] MEDS: Pantoprazole 40 mg EC Tab PO SCH (09:02)
[2017-04-17] MEDS: Divalproex 500 mg DR Tab PO SCH (09:02)
[2017-04-17 09:28] VITALS: BP 125/85; PULSE 67; RESP 19; TEMP 98.2
--- NOTE | 2017-04-17 13:37 | PCM.PYCHDC ---
Mental Status Examination - Mental Status Examination Orientation: Person, Place, Situation, Time Memory: Impaired Mood: Anxious Affect: Constricted Speech: Slurred Attention: WNL Concentration: Poor Association: WNL Fund of Knowledge: Poor Formal Thought Process: No Impairment Suicidal Ideation: No Current Homicidal Ideation?: No Discharge Summary - Discharge Note Reason for Hospitalization: Transferred from medicine for further evaluation and stabilization. He was admitted to medicine b/c of [facility] after a blood work at [facility]. Laboratory Data: Abnormal Lab Results 04/16/17 04/16/17 04/17/17 16:32 20:54 07:37 POC Glucose (mg/dL) 106 136 H 116 H Consultations:: List each consultation separately and include: 1. Reason for request. 2. Findings. 3. Follow-up Consultations: medicine consulted and help appreciated. Summary of Hospital Course include:: 1. Description of specific treatment plan utilized for patients during their course of treatmen. 2. Summarize the time- course for resolution of acute symptoms and/or regressed behaviors. 3. Describe issues identified and worked on during hospitalization. 4. Describe medication utilized. 5. Describe medical problems identified and treated. 6. Reassessment of suicide risk Summary of Hospital Course: The pt was admitted and started on treatment with psychotherapy, support, psychoeducation and medications. The pt attended some groups and activities, as well as milieu therapy. All the risks and benefits of medications are discussed and the patient understood and agreed. The pt improved with the treatments provided. After care discussed with the patient. He agreed to return to PACT team No meds changed even though Abilify was added instead of Haldol, he wanted to continue with the same regimen. His Clz was held for 2 days due to extreme sedation and reinstated slowly. He will resume his usual dose (450 mg) as of Thursday. He took 350 mg today. He adamantly denied having SI or having attempted suicide. he is morbidly obese and the LOC could be due to vasovagal, low O2, orthosthatic hypotension or any other reason. However, since he remained overly sedated 1-2 days he may have inadvertently overused his meds too. he is educated about that. Medicine added colchine and ASA 81 and he is given a rx for the former. Tobrex is given for possible conjunctivitis and he will continue 3 more days. Analytical Strategist spoke to his brother , PACT psychiatrist and patient case manager. Pt was overall very pleasant, cooperative, somewhat regressed but not acutely psychotic. He asked to be dc'ed home and he is dc'ed to his brother. - Final Diagnosis (DSM 5) Condition upon Discharge: GOOD DSM 5: Chronic schizophrenia Disposition: HOME/ ROUTINE Follow-up Treatment Plan: Continue meds as arranged by PACT team Add ASA 81 mg daily and Colchine Attend activities and session with PACT See your PCP in a week to go over your DM coverage (need for insulin?) and other medical issues, follow up. Weekly blood work re Clozapine Weight loss (diet/exercise) but consider weight loss procedures, i.e. balloon or by-pass surgery - Smoking Cessation Smoking Cessation Medication prescribed: No - Antipsychotic Medications Pt discharged on 2 or more routine antipsychotic medications: No
== END 2017-04-17 11:00 | disposition home or self-care (01) | DRG 449 ==
LOC: C.ER 15:05 → C.9E 20:08 → C.6T 21:03 → OBSVTOIN 04-15 13:29 → C.5E 04-15 18:45
PROVIDERS: ADMIT Psychiatry & Neurology Psychiatry; ATTEND Psychiatry & Neurology Psychiatry
PROC: GZ58ZZZ Individual Psychotherapy, Cognitive-Behavioral (ICD-10-PCS; principal; 2017-04-15)
PROC: GZHZZZZ Group Psychotherapy (ICD-10-PCS; 2017-04-15)
DX: T43.4X1A Poisoning by butyrophenone and thiothixene neuroleptics, accidental (unintentional), initial encounter (principal); F20.9 Schizophrenia, unspecified; E66.01 Morbid (severe) obesity due to excess calories; I10 Essential (primary) hypertension; E11.9 Type 2 diabetes mellitus without complications; F32.9 Major depressive disorder, single episode, unspecified; D64.9 Anemia, unspecified; T45.0X1A Poisoning by antiallergic and antiemetic drugs, accidental (unintentional), initial encounter; E78.5 Hyperlipidemia, unspecified; R41.82 Altered mental status, unspecified; F19.90 Other psychoactive substance use, unspecified, uncomplicated; M10.9 Gout, unspecified; H10.9 Unspecified conjunctivitis; G47.33 Obstructive sleep apnea (adult) (pediatric); Z79.84 Long term (current) use of oral hypoglycemic drugs; Z68.38 Body mass index [BMI] 38.0-38.9, adult